=== PATIENT | female | born 1995 | race Caucasian/White ===

== ENCOUNTER 2020-07-28 17:55 | Emergency (ER) | payer MEDICAID ==
[~2020-07-28] VITALS: Ht 167.6 cm; Wt 158.8 kg
[2020-07-28 18:29] VITALS: Ht 167.6 cm; Wt 158.8 kg
== END 2020-07-28 22:57 | disposition expired ==
LOC: ED 17:55
DX: I46.9 Cardiac arrest, cause unspecified (principal)